=== PATIENT | female | born 1995 | race Two or more races ===

== ENCOUNTER 2018-12-26 20:15 | Emergency (ER) | payer SELFPAY ==
--- NOTE | 2018-12-26 21:49 | CR ---
INDICATION: Pain after jumping injury. COMPARISON: None available. FINDINGS: AP, lateral and oblique views of the left ankle were obtained for a total of three views. There is a comminuted, intra-articular, mildly displaced, longitudinal fracture of the lateral aspect of the distal cuboid, seen on the AP and oblique views. There is no sign of additional fracture or dislocation. The ankle mortise is intact. The talar dome is intact. There is no sign of a joint effusion. The soft tissues are normal in appearance with no sign of foreign body. No degenerative changes are seen. IMPRESSION: Comminuted, intra-articular, mildly displaced, longitudinal fracture of the lateral aspect of the distal cuboid. Dictated by Jose Eng MD @ Dec 26 2018 9:45PM Signed by Dr. Jose Eng @ Dec 26 2018 9:47PM
--- NOTE | 2018-12-26 21:52 | CR ---
INDICATION: Left foot pain after jumping. TECHNIQUE: Two-view. FINDINGS: Cortical irregularity at the base of the 3rd metatarsal is noted as well as possibly the proximal 4th metatarsal. There is overlapping bones of the 4th metatarsal. Findings are suspicious for a fracture at both locations especially the 3rd proximal metatarsal. No significant displacement is seen. The calcaneus appears to be intact. IMPRESSION: Suspected proximal 3rd metatarsal fracture on the left. Possible proximal left 4th metatarsal fracture is noted. Dictated by Vinod Duenas MD @ Dec 26 2018 9:50PM Signed by Dr. Vinod Duenas @ Dec 26 2018 9:50PM
--- NOTE | 2018-12-26 21:56 | EDM.PDOC ---
ED HPI GENERAL MEDICAL PROBLEM - General Chief Complaint: Lower Extremity Injury/Pain Stated Complaint: PT HURT LT FOOT Time Seen by Provider: 12/26/18 21:51 - History of Present Illness INITIAL COMMENTS - FREE TEXT/NARRATIVE: HISTORY AND PHYSICAL: History of present illness: Patient 23-year-old female presents status post fall in which she injured her left foot she denies other trauma or concern. Review of systems: As per history of present illness and below otherwise all systems reviewed and negative. Past medical history: As per history of present illness and as reviewed below otherwise noncontributory. Surgical history: As per history of present illness and as reviewed below otherwise noncontributory. Social history: No reported history of drug or alcohol abuse. Family history: As per history of present illness and as reviewed below otherwise noncontributory. Physical exam: HEENT: Atraumatic, normocephalic, pupils reactive, negative for conjunctival pallor or scleral icterus, mucous membranes moist, throat clear, neck supple, nontender, trachea midline. Lungs: Clear to auscultation, breath sounds equal bilaterally, chest nontender. Heart: S1S2, regular, negative for clicks, rubs, or JVD. Abdomen: Soft, nondistended, nontender. Negative for masses or hepatosplenomegaly. Negative for costovertebral tenderness. Pelvis: Stable nontender. Genitourinary: Deferred. Rectal: Deferred. Extremities: Patient has tenderness over the dorsal aspect of her forefoot no gross deformity neurovascular exam is unremarkable. Neuro: Awake, alert, oriented. Cranial nerves II through XII unremarkable. Cerebellum unremarkable. Motor and sensory unremarkable throughout. Exam nonfocal. Diagnostics: X-ray foot/ankle Therapeutics: Posterior mold and crutches Impression: #1 left foot fracture Definitive disposition and diagnosis as appropriate pending reevaluation and review of above. left foot Pain Score (Numeric/FACES): 5 - Related Data Allergies Allergy/AdvReac Type Severity Reaction Status Date / Time No Known Allergies Allergy Verified 12/26/18 20:47 Home Meds: Home Meds . [No Known Home Meds] 12/26/18 [History] Past Medical History HEENT History: Reports: None Cardiovascular History: Reports: None Respiratory History: Reports: None Gastrointestinal History: Reports: None Genitourinary History: Reports: None DENTAL RESIDENT History: Reports: None Musculoskeletal History: Reports: None Neurological History: Reports: None Psychiatric History: Reports: None Endocrine/Metabolic History: Reports: None Hematologic History: Reports: None Immunologic History: Reports: None Oncologic (Cancer) History: Reports: None Dermatologic History: Reports: None - Infectious Disease History Infectious Disease History: Reports: None - Past Surgical History Head Surgeries/Procedures: Reports: None Social & Family History - Family History Family Medical History: Noncontributory - Tobacco Use Smoking Status *Q: Never Smoker - Caffeine Use Caffeine Use: Reports: None - Recreational Drug Use Recreational Drug Use: No Review of Systems - Review of Systems Review Of Systems: ROS reveals no pertinent complaints other than HPI. ED EXAM, GENERAL - Physical Exam Exam: See Below (T dictation) Course - Vital Signs Last Recorded V/S: Last Vital Signs Temp 36.1 C 12/26/18 20:47 Pulse 90 12/26/18 20:47 Resp 18 12/26/18 20:47 BP 124/71 12/26/18 20:47 Pulse Ox 98 12/26/18 20:47 Departure - Departure Time of Disposition: 21:54 Disposition: Home, Self-Care 01 Condition: Good Clinical Impression: Foot fracture - Discharge Information Referrals: PCP,None [Primary Care Provider] - Additional Instructions: The following information is given to patients seen in the emergency department who are being discharged to home. This information is to outline your options for follow-up care. We provide all patients seen in our emergency department with a follow-up referral. The need for follow-up, as well as the timing and circumstances, are variable depending upon the specifics of your emergency department visit. If you don't have a primary care physician on staff, we will provide you with a referral. We always advise you to contact your personal physician following an emergency department visit to inform them of the circumstance of the visit and for follow-up with them and/or the need for any referrals to a consulting specialist. The emergency department will also refer you to a specialist when appropriate. This referral assures that you have the opportunity for followup care with a specialist. All of these measure are taken in an effort to provide you with optimal care, which includes your followup. Under all circumstances we always encourage you to contact your private physician who remains a resource for coordinating your care. When calling for followup care, please make the office aware that this follow-up is from your recent emergency room visit. If for any reason you are refused follow-up, please contact the [facility] emergency department at and asked to speak to the emergency department charge nurse. Rosa Mosley [facility] - Podiatry [address] [place] [id number] Fax: [phone] [facility] Professional Building [address] [place] [address], [address] [place] [address] Motrin/Tylenol as directed follow-up podiatry or orthopedic surgery as discussed posterior mold crutches as directed return as needed as discussed
== END 2018-12-26 22:44 | disposition home or self-care (01) ==
LOC: MW.ED 20:15
DX: S92.335A Nondisplaced fracture of third metatarsal bone, left foot, initial encounter for closed fracture (principal); S92.345A Nondisplaced fracture of fourth metatarsal bone, left foot, initial encounter for closed fracture; W18.39XA Other fall on same level, initial encounter
CPT/HCPCS: 73610-26-LT; 73610-LT; 73620-26-LT; 73620-LT; 99283-25